=== PATIENT | female | born 2000 | race Hispanic/Latino ===

== ENCOUNTER 2019-10-15 12:58 | Emergency (ER) | payer OTHER, SELFPAY ==
--- NOTE | 2019-10-15 14:27 | RAD REPORT ---
EXAM DESCRIPTION: RAD - Chest Single View - 10/15/2019 2:15 pm CLINICAL HISTORY: fall;Pain, right-side COMPARISON: None TECHNIQUE: AP portable chest image was obtained 10/15/2019 2:15 pm . FINDINGS: No pulmonary contusion or acute lung parenchymal process. Heart and vasculature are normal . No measurable pleural effusion and no pneumothorax. No gross deformity of the ribcage seen on mell[facility] ble imaging. No acute aortic findings suspected. IMPRESSION: No acute cardiopulmonary process.
--- NOTE | 2019-10-15 14:28 | RAD REPORT ---
EXAM DESCRIPTION: Ribs Right - 10/15/2019 2:16 pm CLINICAL HISTORY: fall;Pain, right-sided rib pain COMPARISON: Chest Single View dated 10/15/2019 FINDINGS: No displaced rib fracture is evident. No non-displaced rib fracture suspected. No aggressive rib lesion. No underlying pneumothorax, effusion, infiltrate or pulmonary contusion. IMPRESSION: Negative right rib series.
--- NOTE | 2019-10-15 16:46 | ER ---
Nurse's Notes [facility] Name: Tamara Jin Age: 19 yrs Sex: Female : 2000 Arrival Date: 10/15/2019 Time: 13:00 Bed 13 Private MD: Diagnosis: Other chest pain-right lower lateral from fall;Fall (on) (from) other stairs and steps Presentation: 10/14 13:08 Chief complaint: Patient states: s/p fall after missing a step and landed on her right sv side hitting a step on it. Happened a week ago. 13:08 Acuity: ANGELA 4 sv 13:10 Coronavirus screen: Proceed with normal triage. Patient denies a cough. Patient denies sv shortness of breath or difficulty breathing. Patient denies measured and/or subjective temperature greater than 100.4F prior to today's visit. Patient denies travel on a cruise ship or to a country the [facility] currently lists as an affected area. Patient denies contact with known and/or suspected case of COVID-19. Ebola Screen: No symptoms or risks identified at this time. Risk Assessment: Do you want to hurt yourself or someone else? Patient reports no desire to harm self or others. Onset of symptoms was October 08, 2019. 13:10 Method Of Arrival: Ambulatory sv 13:10 Initial Sepsis Screen: Does the patient meet any 2 criteria? No. Patient's initial bp sepsis screen is negative. Does the patient have a suspected source of infection? No. Patient's initial sepsis screen is negative. Triage Assessment: 13:12 General: Appears in no apparent distress. uncomfortable, Behavior is calm, cooperative, sv appropriate for age. Pain: Complains of pain in right lateral posterior chest. Neuro: Level of Consciousness is awake, alert, obeys commands, Oriented to person, place, time, situation, Gait is steady. Respiratory: Respiratory effort is even, unlabored. Historical: - Allergies: 13:10 No Known Allergies; sv - PMHx: 13:10 None; sv - PSHx: 13:10 None; sv - Immunization history:: Adult Immunizations up to date. - Social history:: Smoking status: Patient denies any tobacco usage or history of. Screenin:15 Abuse screen: Denies threats or abuse. Denies injuries from another. Nutritional bp screening: No deficits noted. Tuberculosis screening: No symptoms or risk factors identified. Fall Risk None identified. Assessment: 16:15 General: Appears in no apparent distress. comfortable, Behavior is cooperative, bp appropriate for age, anxious. Pain: Complains of pain in right lateral posterior chest. Neuro: No deficits noted. Cardiovascular: No deficits noted. Respiratory: No deficits noted. GI: No signs and/or symptoms were reported involving the gastrointestinal system. : No signs and/or symptoms were reported regarding the genitourinary system. EENT: No deficits noted. Derm: No deficits noted. Musculoskeletal: No deficits noted. 17:22 Reassessment: PT D/C HOME AMBULATORY, DX WITH MUSCULOSKELETAL PAIN. bp Vital Signs: 13:10 BP 109 / 72; Pulse 59; Resp 16; Temp 98.3; Pulse Ox 100% ; Weight 72.57 kg; Height 5 sv ft. 3 in. (160.02 cm); 16:32 BP 111 / 70; Pulse 51; Resp 16; Temp 98.2; Pulse Ox 99% on R/A; dh4 13:10 Body Mass Index 28.34 (72.57 kg, 160.02 cm) sv ED Course: 13:00 Patient arrived in ED. ag5 13:10 Triage completed. sv 13:10 Arm band placed on. sv 14:14 Chest Single View XRAY In Process Unspecified. EDMS 14:14 Ribs Right XRAY In Process Unspecified. EDMS 16:14 Kaiden Mercer, RN is Primary Nurse. bp 16:15 Patient has correct armband on for positive identification. Bed in low position. Call bp light in reach. Side rails up X2. 16:31 Gray Macias PA is PHCP. cp 16:31 Calvin Doss MD is Attending Physician. cp 17:28 No provider procedures requiring assistance completed. Patient did not have IV access bp during this emergency room visit. Administered Medications: No medications were administered Outcome: 16:45 Discharge ordered by . cp 17:28 Discharged to home ambulatory. bp 17:28 Condition: stable 17:28 Discharge instructions given to patient, Instructed on discharge instructions, follow up and referral plans. medication usage, Demonstrated understanding of instructions, follow-up care, medications, Prescriptions given X 2. 17:30 Patient left the ED. bp Signatures: Dispatcher [employer] Karen Gudino, RN RN sv Gray Macias PA PA cp Peltier, Brian, RN RN Harsha Keen 5 Jf Allred 4 Corrections: (The following items were deleted from the chart) 13:12 13:10 Pulse 59bpm; Resp 16bpm; Pulse Ox 100%; Temp 98.3F; 72.57 kg; Height 5 ft. 3 in.; sv BMI: 28.3; sv
--- NOTE | 2019-10-15 16:46 | EDPHYS ---
Physician Documentation [facility] Name: Tamara iJn Age: 19 yrs Sex: Female : 2000 Arrival Date: 10/15/2019 Time: 13:00 Bed 13 Private MD: ED Physician Calvin Doss HPI: 10/14 16:35 This 19 yrs old Female presents to ER via Ambulatory with complaints of Fall cp Injury, Back Pain. 16:35 Details of fall: The patient fell from an upright position, while walking, and struck a cp concrete surface. Onset: The symptoms/episode began/occurred 1 week(s) ago. Associated injuries: The patient sustained right lower lateral chest area, painful injury. Severity of symptoms: in the emergency department the symptoms are unchanged, despite home interventions. Patient reports slip and fall while walking down stairs of apartment complex 1 week ago. Landed backward and having pain right lower lateral chest wall. Historical: - Allergies: 13:10 No Known Allergies; sv - PMHx: 13:10 None; sv - PSHx: 13:10 None; sv - Immunization history:: Adult Immunizations up to date. - Social history:: Smoking status: Patient denies any tobacco usage or history of. ROS: 16:37 Eyes: Negative for injury, pain, redness, and discharge. cp 16:37 Constitutional: Negative for fever. 16:37 ENT: Negative for ear pain, sore throat, difficulty swallowing, difficulty handling secretions. 16:37 Cardiovascular: Positive for chest pain, of the right lower lateral chest wall, Negative for palpitations. 16:37 Respiratory: Negative for cough, shortness of breath, wheezing. 16:37 Abdomen/GI: Negative for abdominal pain, nausea, vomiting, and diarrhea. 16:37 Back: Negative for decreased range of motion. 16:37 : Negative for urinary symptoms. 16:37 Neuro: Negative for dizziness, headache, loss of consciousness, syncope, weakness. 16:37 All other systems are negative. Exam: 16:39 Head/Face: Normocephalic, atraumatic. cp 16:39 Constitutional: The patient appears in no acute distress, alert, awake, non-toxic, well developed, well nourished. 16:39 Eyes: Periorbital structures: appear normal, Conjunctiva: normal, no exudate, no injection, Lids and lashes: appear normal, bilaterally. 16:39 ENT: External ear(s): are unremarkable, Nose: is normal, Mouth: is normal, Posterior pharynx: Airway: no evidence of obstruction, patent. 16:39 Neck: C-spine: vertebral tenderness, is not appreciated, crepitus, is not appreciated, ROM/movement: is normal, is supple, without pain, no range of motions limitations. 16:39 Chest/axilla: Inspection: normal, Palpation: crepitus, is not appreciated, tenderness, that is mild, of the right lower lateral chest wall, that partially reproduces the patient's complaints. 16:39 Cardiovascular: Rate: bradycardic, Rhythm: regular, Edema: is not appreciated, JVD: is not appreciated. 16:39 Respiratory: the patient does not display signs of respiratory distress, Respirations: normal, no use of accessory muscles, no retractions, no splinting, no tachypnea, labored breathing, is not present, Breath sounds: are clear throughout, no decreased breath sounds. 16:39 Abdomen/GI: Inspection: abdomen appears normal, Palpation: abdomen is soft and non-tender, in all quadrants. 16:39 Back: pain, is absent, of the thoracic area and lumbar area, ROM is normal. 16:39 Skin: injury, abrasion(s), small abrasion noted, of the right elbow. 16:39 Neuro: Orientation: to person, place \T\ time. Mentation: is normal, Motor: moves all fours, strength is normal, Gait: is steady, at a normal pace, without difficulty. Vital Signs: 13:10 BP 109 / 72; Pulse 59; Resp 16; Temp 98.3; Pulse Ox 100% ; Weight 72.57 kg; Height 5 sv ft. 3 in. (160.02 cm); 16:32 BP 111 / 70; Pulse 51; Resp 16; Temp 98.2; Pulse Ox 99% on R/A; dh4 13:10 Body Mass Index 28.34 (72.57 kg, 160.02 cm) sv MDM: 16:42 Patient medically screened. cp 16:45 Data reviewed: vital signs, nurses notes, radiologic studies, plain films. cp 16:45 Differential diagnosis: contusion, fracture, sprain, strain. Counseling: I had a cp detailed discussion with the patient and/or guardian regarding: the historical points, exam findings, and any diagnostic results supporting the discharge/admit diagnosis, radiology results, to return to the emergency department if symptoms worsen or persist or if there are any questions or concerns that arise at home. ED course: VSS. Xrays negative for fracture. Will discharge to home for continued monitoring. 10/14 16:58 Order name: Urine Dipstick--Ancillary (enter results) bd 10/14 16:58 Order name: Urine --Ancillary (enter results) bd 10/14 13:14 Order name: Chest Single View XRAY; Complete Time: 16:31 sv 10/14 13:14 Order name: Ribs Right XRAY; Complete Time: 16:31 sv 10/14 16:32 Interpretation: Report reviewed. 10/14 16:35 Order name: Urine Dipstick-Ancillary (obtain specimen); Complete Time: 17:13 cp 10/14 16:35 Order name: Urine Test (obtain specimen); Complete Time: 17:13 cp Administered Medications: No medications were administered Disposition: 10/15 09:10 Co-signature as Attending Physician, Calvin Doss MD I agree with the assessment and kdr plan of care. Disposition: 10/15/19 16:45 Discharged to Home. Impression: Other chest pain - right lower lateral from fall, Fall (on) (from) other stairs and steps. - Condition is Stable. - Discharge Instructions: Chest Wall Pain. - Prescriptions for Naprosyn 500 mg Oral Tablet - take 1 tablet by ORAL route 2 times per day take with food; 20 tablet. Cyclobenzaprine 10 mg Oral Tablet - take 1 tablet by ORAL route every 8 hours As needed; 15 tablet. - Medication Reconciliation Form, Thank You Letter, Antibiotic Education, Prescription Opioid Use form. - Follow up: Private Physician; When: 2 - 3 days; Reason: Worsening of condition. - Problem is new. - Symptoms have improved. Signatures: Dispatcher [employer] Karen Gudino, RN RN Calvin Cottrell MD MD kdr Page, Corey, PA PA Kaiden Prabhakar RN RN bp Corrections: (The following items were deleted from the chart) 10/14 17:30 16:45 10/15/2019 16:45 Discharged to Home. Impression: Other chest pain - right lower bp lateral from fall; Fall (on) (from) other stairs and steps. Condition is Stable. Forms are Medication Reconciliation Form, Thank You Letter, Antibiotic Education, Prescription Opioid Use. Follow up: Private Physician; When: 2 - 3 days; Reason: Worsening of condition. Problem is new. Symptoms have improved. cp 10/15 14:42 10/14 16:30 Differential diagnosis: contusion, fracture, strain, cp cp
[2019-10-15 17:38] VITALS: BP 111/70; TEMP 98.2; O2SAT 99
[2019-10-15 17:40] LABS: Urine Blood TRACE (NEG); Urine Glucose NEGATIVE (NEG); Urine Protein NEGATIVE (NEG); Urine Specific Gravity >1.030 (1.005-1.030); Urine pH 6.5 (5.0-7.0)
== END 2019-10-15 17:30 | disposition home or self-care (01) ==
LOC: ER 12:58
DX: R07.9 Chest pain, unspecified (principal); W01.0XXA Fall on same level from slipping, tripping and stumbling without subsequent striking against object, initial encounter; Y93.01 Activity, walking, marching and hiking; Y92.039 Unspecified place in apartment as the place of occurrence of the external cause
CPT/HCPCS: 71045; 81003; 81025; 99283